=== PATIENT | male | born 1965 | race Caucasian/White ===

== ENCOUNTER 2023-07-11 14:15 | Observation (INO) ==
[2023-08-31] MEDS ORDERED: ceFAZolin 2 GM PREMIX 2 GM/50 ML BAG ONE (10:37)
[2023-08-31] MEDS ORDERED: Famotidine IV 10 MG/ML 2 ml VIAL (20 mg) ONE (10:37)
[2023-08-31] MEDS ORDERED: Tranexamic Acid 1 GM/100ML BAG 2,000 MG/200 ML BAG IV ONE (10:37)
[2023-08-31] MEDS ORDERED: Dexamethasone IV 4 MG/ML VIAL 1 ml VIAL ONE (10:37)
[2023-08-31] MEDS: Dexamethasone IV 4 MG/ML VIAL 1 ml VIAL IV SLOW PU ONE (11:00)
[2023-08-31] MEDS: Lactated Ringers 1000 ml BAG 1,000 ML IV SCH ×2 (11:00→18:42)
[2023-08-31] MEDS: Famotidine IV 10 MG/ML 2 ml VIAL (20 mg) IV ONE (11:00)
[2023-08-31 11:05] LABS: Rapid COVID-19 Molecular Undetected (Undetected)
[2023-08-31] MEDS ORDERED: Midazolam 2 mg/2 ml VIAL 1 mg/ml 2 ml VIAL (2 mg) ONE (11:57)
[2023-08-31] MEDS ORDERED: fentaNYL 100 mcg/2 ml 50 MCG/ML VIAL ONE ×4 (11:57→17:24)
[2023-08-31] MEDS ORDERED: ROPIVACAINE 5 MG/ML 30 ML BTL (0.5%) ONE ×2 (11:59→12:44)
[2023-08-31] MEDS ORDERED: Propofol 10 MG/ML 20 ML BTL ONE (12:36)
[2023-08-31] MEDS ORDERED: Ondansetron 4 mg VIAL 2 MG/ML 2 ml VIAL ONE (12:36)
[2023-08-31] MEDS ORDERED: Lidocaine 2% PF 5 ML VIAL ONE (12:36)
[2023-08-31] MEDS ORDERED: Morphine 2 MG/ML SYRINGE IV PRN (13:16)
[2023-08-31] MEDS ORDERED: Ondansetron 4 mg VIAL 2 MG/ML 2 ml VIAL IV PRN (13:16)
[2023-08-31] MEDS ORDERED: Ondansetron ODT 4 mg TAB 4 MG TAB PO PRN (13:16)
[2023-08-31] MEDS ORDERED: Lactulose 30 ml UDC PO PRN (13:16)
[2023-08-31] MEDS ORDERED: Calcium Carb (TUMS) 500 mg CHEW TAB PO PRN (13:16)
[2023-08-31] MEDS ORDERED: Magnesium Hydroxide LIQ 30 ML UDC PO PRN (13:16)
[2023-08-31] MEDS ORDERED: Rocuronium 50 mg VIAL 10 mg/ml 5 ml VIAL (50 mg) ONE (13:24)
[2023-08-31] MEDS ORDERED: Morphine 4 MG/ML VIAL (1 ml) IV PRN (13:48)
[2023-08-31] MEDS ORDERED: Naloxone 0.4 mg VIAL 0.4 mg/ml 1 ml VIAL IV PRN (13:48)
[2023-08-31] MEDS ORDERED: HYDROmorphone 0.5 MG/0.5 ML SYRINGE ONE ×2 (14:33→14:40)
[2023-08-31] MEDS: Buffered Lidocaine 1% SYRIN 1 ml INTRADERM ONE (15:14)
[2023-08-31] MEDS: ceFAZolin 2 GM in NS PREMIX 2 GM/100 ML BAG IVPB SCH ×2 (16:37→23:03)
[2023-08-31] MEDS: fentaNYL 100 mcg/2 ml 50 MCG/ML VIAL IV PRN (17:28)
[2023-08-31] MEDS: Magnesium Hydroxide LIQ 30 ML UDC PO SCH (21:35)
[2023-08-31] MEDS: FAMCICLOVIR 250 MG PO SCH (22:06)
[2023-09-01 05:22] LABS: Hematocrit 38.7 % (38-53); Hemoglobin 13.1 g/dL (13.2-16.3); Platelet Count 131 10^3/uL (150-450)
[2023-09-01 05:40] LABS: Calcium 8.4 mg/dL (8.6-10.3); Creatinine, Serum 1.01 mg/dL (0.67-1.17); Potassium 4.2 mmol/L (3.5-5.0); eGFR CKD-EPI 87.8 (>60)
[2023-09-01] MEDS: Vitamin THERAPEUTIC TAB PO SCH (09:02)
[2023-09-01 09:22] VITALS: BP 131/71
== END 2023-09-01 16:05 ==
LOC: INTOOBSV 08-31 09:58 → AA 08-31 09:58 → SSU 08-31 13:17
PROVIDERS: ADMIT Orthopaedic Surgery Adult Reconstructive Orthopaedic Surgery; ATTEND Orthopaedic Surgery Adult Reconstructive Orthopaedic Surgery